=== PATIENT | female | born 1995 | race Caucasian/White ===

== ENCOUNTER 2017-08-16 22:50 | Emergency (ER) | payer MEDICAID ==
--- NOTE | 2017-08-16 23:09 | EDM.PDOCBH ---
ED HPI GENERAL MEDICAL PROBLEM - General Chief Complaint: Behavioral/Psych Stated Complaint: [facility] Time Seen by Provider: 08/16/17 22:59 Source of Information: Reports: Patient History Limitations: Reports: No Limitations - History of Present Illness INITIAL COMMENTS - FREE TEXT/NARRATIVE: 21-year-old female presents to the ED per [place] [facility]. She resides with her aunt about 12 miles out of [place]. After dispute with her and tonkelley she left home walking towards [place]. Somewhat a 12 [address] walk[address] Part way through this walk she called 911 and police attended her. She also swelling taken to the ambulance bay and [place] and brought to the ER. Chief complaint is strong suicidal ideation. Tonight she was contemplating slashing her throat with her knife and she does have a pocket knife in her purse. She states she's been taking by doing this the last 3 nights particularly. She has a history of bipolar affective disorder and is currently on no medications. She's been on no medications for about 2 years. She was labeled with attention deficit disorder throughout her childhood but stopped it in her senior year of high school and found she did much better grade soto off of medication. She does still remain quite impulsive. She's been out of school now for a year I she did graduate but has not found any employment. She been living with an aunt. She has never known her biological father. Her mother left her here and took her other 2 children or chair step brothers and sisters with her to [place]. She is therefore essentially a lost soul. She states she was last sexually active 2 years ago. She has used marijuana intermittently to help with the severe disrupted sleep pattern. She doesn't fall sleep use until 4:00 or 5:00 in the morning. It's unclear how she passes the time during the day. She doesn't have much in the way of hobbies. She has a few friends. Denies drinking alcohol to excess. Has never used intravenous drugs. Did take crystal meth once and had a bad or adverse reaction and swear she would never take it again. She reports strong suicidal ideation off and on for the last 3 months. This particular bad the last 3 weeks. About suicide on a daily basis. She has attempted suicide twice in the past last time was about 3 years ago. She does not smoke cigarettes. She does have a history of bronchial asthma but doesn't have an inhaler at this point time she lost hers. Twice he otherwise has no problems. She has Norplant in her right upper extremity and she is having breakthrough bleeding rather heavily the last month or 2. This suggests that she requires an estrogen supplement to correct the dysfunctional hormone problem. She is alert she's oriented she's very truthful she makes good eye contact she has no flight of ideas no manic behavior. 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 [Unable to Verify Home Med List] 08/16/17 [History] Past Medical History Respiratory History: Reports: Asthma (Mild asthma worsened this time of year i.e. seasonal aggravation. Does not have an inhaler at present) LMP (Approximate): Other (See Below) (Has Norplant right upper arm and recently has been having heavy menstrual flow for 3 weeks duration indicating hormone imbalance of dysfunctional uterine bleeding. Progesterone access lack of estrogen.) Psychiatric History: Reports: ADHD (Labile she carried throughout her school years. Stopped medication senior year did better in school.), Bipolar (Labeled as bipolar affective disorder.), Depression, Psych Hospitalization(s), Suicide Attempt (Twice in the past), Suicidal Ideation (Strong suicidal ideation tonight with intent to slash her throat with her pocket knife.) Social & Family History - Living Situation & Occupation Living situation: Reports: Single Occupation: Unemployed Social History Comment: Currently living with him and does not feel appreciated or wanted at her aunt's home. For whatever reason she has not sought employment. She is out of school for the last year. ED ROS GENERAL - Review of Systems Review Of Systems: See Below Constitutional: Reports: Malaise. Denies: Fever, Chills, Decreased Appetite HEENT: Reports: Glasses Respiratory: Reports: Other (Occasional tightness in her chest with some wheezing) Cardiovascular: Reports: No Symptoms Endocrine: Reports: Fatigue GI/Abdominal: Reports: No Symptoms : Reports: Other (Dysfunctional uterine bleeding.) Musculoskeletal: Reports: No Symptoms Skin: Reports: No Symptoms Neurological: Reports: No Symptoms Psychiatric: Reports: Depression, Mood Lability, Suicidal Ideation (Strong suicidal ideation the last 3 nights. [place] putting cutting her throat slashing her throat with her). Denies: Homicidal Ideation Hematologic/Lymphatic: Reports: No Symptoms ( pocket knife) Immunologic: Reports: No Symptoms ED EXAM, BEHAVIORAL HEALTH - Physical Exam Exam: See Below Exam Limited By: No Limitations General Appearance: Alert, WD/WN, No Apparent Distress, Other (Makes good eye contact and carries on a normal conversation) Eye Exam: Bilateral Eye: Normal Inspection Ears: Other (Feels intermittent plugging of her ears which is eustachian tube dysfunction) Nose: Other ( tonically as her tympanic membranes appear normal. nasal turbinate swelling bilaterally. She does use Flonase no nasal polyps identified ) Throat/Mouth: Normal Inspection, Normal Lips, Normal Teeth, Normal Oropharynx Head: Atraumatic, Normocephalic Neck: Normal Inspection, Supple, Non-Tender, Full Range of Motion Respiratory/Chest: No Respiratory Distress, Lungs Clear, Normal Breath Sounds, No Accessory Muscle Use Cardiovascular: Normal Peripheral Pulses, Regular Rate, Rhythm, No Edema, No Gallop, No Murmur, No Rub, Other (Heart rate came down to the 80s when I was speaking with her.) GI/Abdominal: Normal Bowel Sounds, Soft, Non-Tender, No Organomegaly, No Abnormal Bruit, No Mass, Pelvis Stable, Other (Mildly obese no surgical scars) Back Exam: Normal Inspection, Full Range of Motion. No: CVA Tenderness (L), CVA Tenderness (R) Extremities: Normal Inspection, Normal Range of Motion, Non-Tender, No Pedal Edema Neurological: Alert, Normal Mood/Affect, CN II-XII Intact, Normal Cognition, Normal Gait, Normal Reflexes, No Motor/Sensory Deficits, Oriented x 3 Psychiatric: Alert, Normal Affect, Normal Cognition, Normal Mood, Oriented, Depressed Mood, Suicidal Plan, Suicidal Thoughts. No: Flat Affect, Incoherent, Restless, Tearful, Agitated, Disoriented, Inattentive, Non-Communicative, Poor Eye Contact, Withdrawn, Flight of Ideas, Homicidal Thoughts, Phobic, Tangential Thoughts, Auditory Hallucinations, Visual Hallucinations, Grandiose Thoughts, Pressured Speech, Paranoid Thoughts, Threatening Behavior Skin Exam: Warm, Dry, Intact, Normal color, No rash COURSE, BEHAVIORAL HEALTH COMP - Course Vital Signs: Last Vital Signs Temp 37.2 C 08/16/17 22:54 Pulse 105 H 08/16/17 22:54 Resp 18 08/16/17 22:54 BP 118/78 08/16/17 22:54 Pulse Ox 100 08/16/17 22:54 Orders, Labs, Meds: Laboratory Tests 08/16/17 08/16/17 08/16/17 Range/Units 23:38 23:38 23:38 WBC 11.94 H (3.98-10.04) K/mm3 RBC 4.72 (3.98-5.22) M/mm3 Hgb 14.6 (11.2-15.7) gm/L Hct 41.2 (34.1-44.9) % MCV 87.3 (79.4-94.8) fl MCH 30.9 (25.6-32.2) pg MCHC 35.4 (32.2-35.5) g/dl RDW Std Deviation 38.7 (36.4-46.3) fL Plt Count 280 (182-369) K/mm3 MPV 10.0 (9.4-12.3) fl Neutrophils % (Manual) 58 (40-60) % Band Neutrophils % 0 (0-10) % Lymphocytes % (Manual) 35 (20-40) % Atypical Lymphs % 0 % Monocytes % (Manual) 5 (2-10) % Eosinophils % (Manual) 2 (0.7-5.8) % Basophils % (Manual) 0 L (0.1-1.2) Platelet Estimate Adequate RBC Morph Comment Normal Sodium 140 (136-145) mEq/L Potassium 4.0 (3.5-5.1) mEq/L Chloride 104 (98-107) mEq/L Carbon Dioxide 25 (21-32) mEq/L Anion Gap 15.0 (5-15) BUN 14 (7-18) mg/dL Creatinine 0.9 (0.55-1.02) mg/dL Est Cr Clr Drug Dosing 79.52 mL/min Estimated GFR (MDRD) > 60 (>60) mL/min BUN/Creatinine Ratio 15.6 (14-18) Glucose 134 H (74-106) mg/dL Calcium 9.3 (8.5-10.1) mg/dL Total Bilirubin 0.8 (0.2-1.0) mg/dL AST 25 (15-37) U/L ALT 23 (14-59) U/L Alkaline Phosphatase 46 (46-116) U/L C-Reactive Protein < 0.2 (<1.0) mg/dL Total Protein 7.3 (6.4-8.2) g/dl Albumin 4.2 (3.4-5.0) g/dl Globulin 3.1 gm/dL Albumin/Globulin Ratio 1.4 (1-2) TSH 3rd Generation 2.454 (0.516-4.13) uIU/mL Urine Color (Yellow) Urine Appearance (Clear) Urine pH (5.0-8.0) Ur Specific [place] (1.005-1.030) Urine Protein (Negative) Urine Glucose (UA) (Negative) Urine Ketones (Negative) Urine Occult Blood (Negative) Urine Nitrite (Negative) Urine Bilirubin (Negative) Urine Urobilinogen (0.2-1.0) Ur Leukocyte Esterase (Negative) Urine RBC (0-5) /hpf Urine WBC (0-5) /hpf Ur Epithelial Cells (0-5) /hpf Urine Bacteria (FEW) /hpf Urine Mucus (FEW) /hpf Urine HCG, Qual (NEGATIVE) Salicylates (2.8-20) mg/dL Urine Opiates Screen (NEGATIVE) Ur Buprenorphine Scrn (NEGATIVE) Ur Oxycodone Screen (NEGATIVE) Urine Methadone Screen (NEGATIVE) Ur Propoxyphene Screen (NEGATIVE) Acetaminophen 0 L (10-30) ug/mL Ur Barbiturates Screen (NEGATIVE) Ur Tricyclics Screen (NEGATIVE) Ur Phencyclidine Scrn (NEGATIVE) Ur Amphetamine Screen (NEGATIVE) U Methamphetamines Scrn (NEGATIVE) U Benzodiazepines Scrn (NEGATIVE) U Cocaine Metab Screen (NEGATIVE) U Marijuana (THC) Screen (NEGATIVE) Ethyl Alcohol 0.00 (0.00) gm% 08/16/17 08/16/1708/16/18 Range/Units 23:38 23:44 23:44 WBC (3.98-10.04) K/mm3 RBC (3.98-5.22) M/mm3 Hgb (11.2-15.7) gm/L Hct (34.1-44.9) % MCV (79.4-94.8) fl MCH (25.6-32.2) pg MCHC (32.2-35.5) g/dl RDW Std Deviation (36.4-46.3) fL Plt Count (182-369) K/mm3 MPV (9.4-12.3) fl Neutrophils % (Manual) (40-60) % Band Neutrophils % (0-10) % Lymphocytes % (Manual) (20-40) % Atypical Lymphs % % Monocytes % (Manual) (2-10) % Eosinophils % (Manual) (0.7-5.8) % Basophils % (Manual) (0.1-1.2) Platelet Estimate RBC Morph Comment Sodium (136-145) mEq/L Potassium (3.5-5.1) mEq/L Chloride (98-107) mEq/L Carbon Dioxide (21-32) mEq/L Anion Gap (5-15) BUN (7-18) mg/dL Creatinine (0.55-1.02) mg/dL Est Cr Clr Drug Dosing mL/min Estimated GFR (MDRD) (>60) mL/min BUN/Creatinine Ratio (14-18) Glucose (74-106) mg/dL Calcium (8.5-10.1) mg/dL Total Bilirubin (0.2-1.0) mg/dL AST (15-37) U/L ALT (14-59) U/L Alkaline Phosphatase (46-116) U/L C-Reactive Protein (<1.0) mg/dL Total Protein (6.4-8.2) g/dl Albumin (3.4-5.0) g/dl Globulin gm/dL Albumin/Globulin Ratio (1-2) TSH 3rd Generation (0.516-4.13) uIU/mL Urine Color Yellow (Yellow) Urine Appearance Slt cloudy H (Clear) Urine pH 6.0 (5.0-8.0) Ur Specific [place] > or = 1.030 (1.005-1.030) Urine Protein Negative (Negative) Urine Glucose (UA) Negative (Negative) Urine Ketones Negative (Negative) Urine Occult Blood Negative (Negative) Urine Nitrite Negative (Negative) Urine Bilirubin Negative (Negative) Urine Urobilinogen 0.2 (0.2-1.0) Ur Leukocyte Esterase Negative (Negative) Urine RBC 0-5 (0-5) /hpf Urine WBC 0-5 (0-5) /hpf Ur Epithelial Cells 5-10 H (0-5) /hpf Urine Bacteria Few (FEW) /hpf Urine Mucus Moderate H (FEW) /hpf Urine HCG, Qual (NEGATIVE) Salicylates 0.5 L (2.8-20) mg/dL Urine Opiates Screen Negative (NEGATIVE) Ur Buprenorphine Scrn Negative (NEGATIVE) Ur Oxycodone Screen Negative (NEGATIVE) Urine Methadone Screen Negative (NEGATIVE) Ur Propoxyphene Screen Negative (NEGATIVE) Acetaminophen (10-30) ug/mL Ur Barbiturates Screen Negative (NEGATIVE) Ur Tricyclics Screen Negative (NEGATIVE) Ur Phencyclidine Scrn Negative (NEGATIVE) Ur Amphetamine Screen Negative (NEGATIVE) U Methamphetamines Scrn Negative (NEGATIVE) U Benzodiazepines Scrn Negative (NEGATIVE) U Cocaine Metab Screen Negative (NEGATIVE) U Marijuana (THC) Screen Presumptive positive H (NEGATIVE) Ethyl Alcohol (0.00) gm% 08/16/17 Range/Units 23:44 WBC (3.98-10.04) K/mm3 RBC (3.98-5.22) M/mm3 Hgb (11.2-15.7) gm/L Hct (34.1-44.9) % MCV (79.4-94.8) fl MCH (25.6-32.2) pg MCHC (32.2-35.5) g/dl RDW Std Deviation (36.4-46.3) fL Plt Count (182-369) K/mm3 MPV (9.4-12.3) fl Neutrophils % (Manual) (40-60) % Band Neutrophils % (0-10) % Lymphocytes % (Manual) (20-40) % Atypical Lymphs % % Monocytes % (Manual) (2-10) % Eosinophils % (Manual) (0.7-5.8) % Basophils % (Manual) (0.1-1.2) Platelet Estimate RBC Morph Comment Sodium (136-145) mEq/L Potassium (3.5-5.1) mEq/L Chloride (98-107) mEq/L Carbon Dioxide (21-32) mEq/L Anion Gap (5-15) BUN (7-18) mg/dL Creatinine (0.55-1.02) mg/dL Est Cr Clr Drug Dosing mL/min Estimated GFR (MDRD) (>60) mL/min BUN/Creatinine Ratio (14-18) Glucose (74-106) mg/dL Calcium (8.5-10.1) mg/dL Total Bilirubin (0.2-1.0) mg/dL AST (15-37) U/L ALT (14-59) U/L Alkaline Phosphatase (46-116) U/L C-Reactive Protein (<1.0) mg/dL Total Protein (6.4-8.2) g/dl Albumin (3.4-5.0) g/dl Globulin gm/dL Albumin/Globulin Ratio (1-2) TSH 3rd Generation (0.516-4.13) uIU/mL Urine Color (Yellow) Urine Appearance (Clear) Urine pH (5.0-8.0) Ur Specific [place] (1.005-1.030) Urine Protein (Negative) Urine Glucose (UA) (Negative) Urine Ketones (Negative) Urine Occult Blood (Negative) Urine Nitrite (Negative) Urine Bilirubin (Negative) Urine Urobilinogen (0.2-1.0) Ur Leukocyte Esterase (Negative) Urine RBC (0-5) /hpf Urine WBC (0-5) /hpf Ur Epithelial Cells (0-5) /hpf Urine Bacteria (FEW) /hpf Urine Mucus (FEW) /hpf Urine HCG, Qual Negative (NEGATIVE) Salicylates (2.8-20) mg/dL Urine Opiates Screen (NEGATIVE) Ur Buprenorphine Scrn (NEGATIVE) Ur Oxycodone Screen (NEGATIVE) Urine Methadone Screen (NEGATIVE) Ur Propoxyphene Screen (NEGATIVE) Acetaminophen (10-30) ug/mL Ur Barbiturates Screen (NEGATIVE) Ur Tricyclics Screen (NEGATIVE) Ur Phencyclidine Scrn (NEGATIVE) Ur Amphetamine Screen (NEGATIVE) U Methamphetamines Scrn (NEGATIVE) U Benzodiazepines Scrn (NEGATIVE) U Cocaine Metab Screen (NEGATIVE) U Marijuana (THC) Screen (NEGATIVE) Ethyl Alcohol (0.00) gm% Medications Discontinued Medications Generic Name Dose Route Start Last Admin Trade Name Luís PRN Reason Stop Dose Admin Albuterol 8.5 gm 08/16/17 23:52 08/17/17 00:13 Proventil Hfa INH 08/16/17 23:53 2 puff ONETIME ONE Administration Albuterol Confirm 08/17/17 00:08 08/17/17 00:14 Proventil Hfa Administered 08/17/17 00:09 Not Given Dose 6.7 gm INH .STK-MED ONE Hydrocortisone 3 gm 08/16/17 23:52 08/17/17 00:13 Hydrocortisone 1% Crm TOP 08/16/17 23:53 1 dose ONETIME ONE Administration Lorazepam 1.5 mg 08/17/17 23:54 Ativan PO 08/17/17 23:55 ONETIME ONE Lorazepam 1.5 mg 08/16/17 23:58 08/17/17 00:12 Ativan PO 08/16/17 23:59 1.5 mg ONETIME ONE Administration Re-Assessment/Re-Exam: 21-year-old female attends the ED with suicidal ideation. She for the last 3 nights has been contemplating slashing her throat with her pocket knife. Multiple social issues. Unemployed and living with an aunt and feels unwanted and rarely they are on the outs. Biological mother moved to [place] appears ago with step brothers and sisters. She has never known her father. She is therefore essentially on her own. She is on unemployed. She does not have a substance abuse issue. She has a major problem with sleep disorder inability to fall asleep. Reports chronic major depressive illness off medications for 2 years. History of ADHD but off medication since senior year of high school. Currently is asking for help with her depressive illness with many social needs as well. It's unclear to me why she has not been able to seek employment since graduating from high school last year. Plan routine labs including a TSH and test. Urine drug screen to be done which she states will likely be positive for marijuana she uses it when necessary to help sleep. Re-Assessment/Re-Exam Date: 08/17/17 (Labs are back. Total white count is mildly elevated at 11.94 with a normal differential at 58% neutrophils and no bands. Hemoglobin is 14.6 with hematocrit of 41.2. Platelet count is 280,000. Sodium is 140 with potassium 4.0. Toward 104 with a bicarbonate of 25. Anion gap is 15.0. BUN is 14 with a creatinine of 0.9. GFR is greater than 60. Glucose slightly elevated 134. Calcium normal at 9.3. Liver function normal. C- reactive protein less than 0.2. TSH is 2.454 normal. Urine is negative for any infective process. Salicylates 0.5 which is very low.. Urine drug screen is presumptive positive for marijuana as she alluded to. But alcohol is 0.00. I will give her Ativan 1.5 mg by mouth an effort to help her sleep tonight. We cannot find adequate transportation to [place] at this time although there is a bed available at [facility] in [place]. We will try at 0600 hrs. this morning once the sugars department has more manpower.) Re-Assessment/Re-Exam Time: 02:15 (Patient has been fast asleep for the last 2 hours after receiving the Ativan orally.) Medical Clearance: 08/17/17 06:09 Spoke with customer operations specialist psychiatrist at [facility] in [place]- - Dr. Escoto and he has accepted care of this young lady. She will be hopefully transported by the [facility] deputies department later this morning.. She has been sleeping all night. She'll be offered breakfast when she awakens. Departure - Departure Time of Disposition: 08:00 Disposition: DC/Tfer to Psych Hosp/Unit 65 Condition: Fair Clinical Impression: Depressive disorder, Depression with suicidal ideation - Discharge Information Referrals: PCP,None [Primary Care Provider] - Forms: ED Department Discharge Additional Instructions: Patient transferred to [facility] in [place] for definitive psychiatric evaluation and treatment. Went by [facility] department.
[2017-08-16] MEDS ORDERED: Albuterol 6.7 GM Inhaler INH ONE (23:52)
[2017-08-16] MEDS ORDERED: Hydrocortisone 1% Crm 30 GM Tube TOP ONE (23:52)
[2017-08-16] MEDS ORDERED: LORazepam 1 MG Tab PO ONE (23:58)
[2017-08-17] MEDS ORDERED: Albuterol 6.7 GM Inhaler INH ONE (00:08)
[2017-08-17] MEDS ORDERED: LORazepam 1 MG Tab PO ONE (23:54)
== END 2017-08-17 07:20 ==
LOC: JD.ED 22:50
DX: F32.9 Major depressive disorder, single episode, unspecified (principal); R45.851 Suicidal ideations; Z88.8 Allergy status to other drugs, medicaments and biological substances
CPT/HCPCS: 36415; 80053; 80306; 81001; 81025; 84443; 85007; 85027; 86140; 99285; A9270; G0480